=== PATIENT | female | born 1990 | race Caucasian/White ===

== ENCOUNTER → 2017-04-01 | Outpatient (REF) | payer BC | LOC: M SFHCWAGY 10:15 | PROVIDERS: ATTEND Nurse Practitioner Women's Health | DX: Z12.4 Encounter for screening for malignant neoplasm of cervix (principal) ==

== ENCOUNTER 2018-08-05 18:49 | Emergency (ER) | payer BC ==
[~2018-08-05] VITALS: Ht 167.6 cm; Wt 63.6 kg
[2018-08-05] MEDS ORDERED: IBUPROFEN 600 MG TAB PO ONE (20:00)
--- NOTE | 2018-08-05 20:38 | REP ---
Right knee five views : There is no fracture or dislocation. Mineralization and joint spaces are normal. There are no calcifications or foreign bodies. Impression: Negative right knee . Electronically Signed by Juan Carlos Haas MD 08/05/2018 08:28 P
[2018-08-05 20:49] VITALS: BP 119/72
[2018-08-05] MEDS ORDERED: IBUP-1022 PO (21:02)
== END 2018-08-05 21:10 | disposition home or self-care (01) ==
LOC: M ED 18:49
DX: S86.311A Strain of muscle(s) and tendon(s) of peroneal muscle group at lower leg level, right leg, initial encounter (principal); V00.321A Fall from snow-skis, initial encounter; Y92.838 Other recreation area as the place of occurrence of the external cause; T49.2X5A Adverse effect of local astringents and local detergents, initial encounter

== ENCOUNTER → 2019-04-13 | Outpatient (REF) | payer BC ==
[~2019-04-13] MED LIST: IBUP-1022 PO
[2019-04-13 17:11] LABS: HEMOGLOBIN 13.1 g/dl (12.0-15.5); MEAN CORPUSCULAR HEMOGLOBIN 31.6 pg (27.0-33.0); MEAN CORPUSCULAR HGB CONC 33.6 g/dl (32.0-36.5); MEAN CORPUSCULAR VOLUME 94.2 fl (80.0-96.0); PLATELET COUNT, AUTOMATED 308 10^3/uL (150-450); RED BLOOD COUNT 4.14 10^6/uL (4.00-5.40); WHITE BLOOD COUNT 6.1 10^3/uL (4.0-10.0)
[2019-04-13 17:31] LABS: HCG, SERUM QUANTITATIVE 940 MIU/ML
[2019-04-14 10:05] LABS: RUBELLA IgG QUALITATIVE IMMUNE (IMMUNE)
[2019-04-14 10:33] LABS: HEPATITIS C VIRUS ABY INDEX 0.1 INDEX (<0.8)
[2019-04-14 10:34] LABS: HIV 1&2 SCREEN CENTAUR NEGATIVE (NEGATIVE)
== END ==
LOC: M LAB REF 16:29
PROVIDERS: ATTEND Obstetrics & Gynecology
DX: O36.80X0 Pregnancy with inconclusive fetal viability, not applicable or unspecified (principal); Z3A.00 Weeks of gestation of pregnancy not specified

== ENCOUNTER → 2019-05-18 | Outpatient (REF) | payer BC, OTHER | LOC: M LAB REF 16:38 | PROVIDERS: ATTEND Obstetrics & Gynecology | DX: Z34.81 Encounter for supervision of other normal pregnancy, first trimester (principal) ==

== ENCOUNTER → 2019-09-08 | Outpatient (CLI) | payer BC, OTHER ==
[2019-09-08 08:29] LABS: MEAN CORPUSCULAR HEMOGLOBIN 33.2 pg (27.0-33.0); MEAN CORPUSCULAR HGB CONC 34.3 g/dl (32.0-36.5); PLATELET COUNT, AUTOMATED 263 10^3/uL (150-450); RED BLOOD COUNT 3.61 10^6/uL (4.00-5.40)
== END ==
LOC: M LAB 06:58
PROVIDERS: ATTEND Obstetrics & Gynecology
DX: Z34.82 Encounter for supervision of other normal pregnancy, second trimester (principal); Z3A.00 Weeks of gestation of pregnancy not specified

== ENCOUNTER → 2019-11-20 | Outpatient (REF) | payer OTHER | LOC: M LAB REF 11:49 | PROVIDERS: ATTEND Obstetrics & Gynecology | DX: Z34.83 Encounter for supervision of other normal pregnancy, third trimester (principal) ==

== ENCOUNTER 2019-12-03 19:43 | Outpatient (CLI) | payer BC, OTHER ==
[2019-12-03 20:08] VITALS: BP 125/68
[2019-12-03] MEDS ORDERED: PRENTAB9 PO (20:45)
--- NOTE | 2019-12-04 10:48 | IPN ---
DATE OF EVALUATION: 12/03/2019 HISTORY: 29-year-old, (G) 2, para (P) 1 female, at 37-5/7 weeks gestation presents with spontaneous loss of fluid per vagina at 4:30 p.m. on the day of evaluation. She then passed mucus. She initially passed the fluid when she was standing up from a seated position. She continued to leak over the next couple of hours, then the leaking seemed to stop. After waiting at home for about 4 hours she presented to the triage unit at [facility]. She is a patient of [facility]. OBJECTIVE: Blood pressure 125/68, pulse 90. Afebrile. She is in no apparent distress. HEAD/NECK EXAM: Normal. LUNGS: Clear. HEART: Regular rate and rhythm. ABDOMEN: Nontender, gravid. heart tones category 1. STERILE SPECULUM EXAM: Positive Nitrazine. Negative fern. Negative pool. Cervix 2 cm, 80% and -2, posterior vertex. ULTRASOUND: Amniotic fluid index (ANAYELI) equals 8.0. ASSESSMENT: 29-year-old, 2, para 1, at 37-5/7 weeks gestation with no definite evidence of ruptured membranes. She is having contractions but not in labor. PLAN: The patient's speculum exam done on two occasions during this visit in order to try to confirm rupture. Rupture of membranes could not be confirmed. The patient will be discharged home. She lives [place] the street from the hospital. If contractions increase or she feels like she is leaking fluid later in the evening, she will re-present to the labor floor. She plans to followup with Dr. Al on 12/05/2019.
== END 2019-12-03 22:25 | disposition home or self-care (01) ==
LOC: M LDO 19:43
PROVIDERS: ATTEND Specialist
DX: O60.03 Preterm labor without delivery, third trimester (principal); Z3A.37 37 weeks gestation of pregnancy
CPT/HCPCS: 59025; 76815; G0378; G0463

== ENCOUNTER 2019-12-04 01:18 | Inpatient (IN) | payer BC, OTHER ==
[~2019-12-04] VITALS: Ht 167.6 cm; Wt 76.5 kg
[2019-12-04] VITALS (9 sets, daily range): BP systolic 114–138; BP diastolic 62–87
[~2019-12-04 01:18] MED LIST changes: +PRENTAB9 PO
[2019-12-04] MEDS ORDERED: LACTATED RINGER'S 1000 ML IV STA (01:55)
[2019-12-04] MEDS ORDERED: LR 1,000 ML IV SCH (01:55)
[2019-12-04] MEDS ORDERED: FENTANYL 2MCG/ML ROPIVACAINE 0.2% IN 0.9% NACL 100ML IVBAG As Ordered ONE (02:19)
[2019-12-04 02:23] LABS: HEMATOCRIT 38.9 % (36.0-47.0); MEAN CORPUSCULAR VOLUME 94.4 fl (80.0-96.0); PLATELET COUNT, AUTOMATED 215 10^3/uL (150-450); RED BLOOD COUNT 4.12 10^6/uL (4.00-5.40); WHITE BLOOD COUNT 13.3 10^3/uL (4.0-10.0)
[2019-12-04] MEDS ORDERED: OXYTOCIN 30 UNITS IN 0.9% NaCl 500ML IV BAG (J2590) As Ordered ONE (02:23)
[2019-12-04] MEDS ORDERED: IBUPROFEN 600MG TAB PO PRN (03:30)
[2019-12-04] MEDS ORDERED: OXYTOCIN DRIP 30 UNITS in IV 1 EA IV ONE (03:30)
[2019-12-04] MEDS ORDERED: RHOGAM 300 MCG (1500 IU) INJ (J2790) IM SCH (03:30)
[2019-12-04] MEDS ORDERED: MEASLES,MUMPS,RUBELLA VACCINE INJ (MMR-II) (90707) SC SCH (03:30)
[2019-12-04] MEDS ORDERED: DIBUCAINE 1% OINTMENT 30GM TOP PRN (03:30)
[2019-12-04] MEDS ORDERED: LIDOCAINE 1% MDV 20ML VIAL INFIL ONE (03:30)
[2019-12-04] MEDS ORDERED: ONDANSETRON 4MG/2ML VIAL IV PRN (03:30)
[2019-12-04] MEDS ORDERED: ACETAMINOPHEN TAB 650MG DOSE (2X325MG) PO PRN (03:30)
[2019-12-04] MEDS ORDERED: METHYLERGONOVINE MALEATE 0.2 MG TAB PO PRN (03:30)
[2019-12-04] MEDS ORDERED: DOCUSATE SODIUM 100 MG CAP PO PRN (03:30)
[2019-12-04] MEDS: IBUPROFEN 800 MG TAB PO PRN ×3 (03:56→23:48)
[2019-12-04] MEDS: ACETAMINOPHEN 500 MG TAB PO PRN ×2 (03:57→20:07)
[2019-12-04] MEDS ORDERED: FENTANYL/ROPIVACAINE/NACL BAG 100 ML EPIDURAL SCH (07:00)
[2019-12-04] MEDS: PRENATAL VITAMINS CHEWABLE TABLET PO SCH (09:00)
--- NOTE | 2019-12-04 09:18 | HPE ---
DATE OF ADMISSION: 12/04/2019 HISTORY OF PRESENT ILLNESS (HPI): 29-year-old, (G) 2, para (P) 1 female, at 37-6/7 weeks gestation presents with regular contractions every 3-4 minutes for the last several hours with contractions increased intensity. She thought she broke her water at approximately 4:30 p.m. the day prior to admission. She was evaluated at the hospital. However, rupture of membranes could not be confirmed at that time and she was sent home. She denies vaginal bleeding. She denies any further leakage of fluid since she left the hospital. COURSE: The patient's care is done through Dr. Zachary Al, [facility]. She has had no complications. OBSTETRICAL HISTORY: 2009, spontaneous vaginal delivery, no complications, full term. MEDICAL HISTORY: Noncontributory. SURGICAL HISTORY: Colposcopy. ALLERGIES: NONE. SOCIAL HISTORY: The patient is . She lives in [place]. 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 She denies cigarettes, alcohol or drug. FAMILY HISTORY: Noncontributory. PHYSICAL EXAMINATION: Blood pressure 134/74, pulse 84. Afebrile. She appears uncomfortable. HEAD/NECK EXAM: Normal. LUNGS: Clear. HEART: Regular. ABDOMEN: Nontender, gravid. heart tones category 1. CONTRACTIONS: Every 3 minutes. STERILE VAGINAL EXAM: 6 cm, 100%, zero station. Head well applied to the cervix. Membranes palpable. EXTREMITIES: Nontender. LABS: She is GBS negative. Blood type AB positive. ASSESSMENT: 29-year-old, 2, para 1, at 37-6/7 weeks gestation who presents in early labor PLAN: The patient is admitted on 12/04/2019. Anticipate vaginal delivery. FADY
--- NOTE | 2019-12-04 11:00 | DN ---
DATE OF DELIVERY: 12/04/2019 PREDELIVERY DIAGNOSIS: 37-6/7 weeks gestation, labor. POSTDELIVERY DIAGNOSIS: Delivered. PROCEDURE: Spontaneous vaginal delivery. IT SECURITY ADMINISTRATOR: Adama Coello MD ANESTHESIA: None. ESTIMATED BLOOD LOSS: 300 mL. FINDINGS: 5 pound 14 ounce female , score 8 and 9. A velamentous cord insertion noted in the placenta. DELIVERY SUMMARY: The patient was admitted in active labor and 6 cm dilated. She quickly progressed to 10 cm. Membranes were artificially ruptured with clear fluid noted. After approximately 10 minutes second stage, the patient had spontaneously delivery a 5 pound 14 ounce female infant, score 8 and 9, with no delivery anesthesia. The shoulders delivered with ease. There was no nuchal cord. The was handed to the mother and cried immediately. The cord was doubly clamped and cut. The placenta delivered spontaneously and appeared to be intact. A velamentous insertion of the umbilical cord was noted. A first-degree perineal laceration was repaired with under local anesthesia with #2-0 chromic in the usual fashion. Sponge and needle counts were correct. MTDD
[2019-12-05 05:42] VITALS: BP 121/81
[2019-12-05 07:30] VITALS: BP 121/81
[2019-12-05] MEDS: PRENATAL VITAMINS CHEWABLE TABLET PO SCH (08:21)
== END 2019-12-05 13:25 | disposition home or self-care (01) | DRG 560 ==
LOC: M LDO 01:18 → M LDI 01:53 → M OBS 05:05
PROVIDERS: ADMIT Specialist; ATTEND Specialist
PROC: 10E0XZZ Delivery of Products of Conception, External Approach (ICD-10-PCS; principal; 2019-12-04)
PROC: 10907ZC Drainage of Amniotic Fluid, Therapeutic from Products of Conception, Via Natural or Artificial Opening (ICD-10-PCS; 2019-12-04)
PROC: 0HQ9XZZ Repair Perineum Skin, External Approach (ICD-10-PCS; 2019-12-04)
DX: O69.89X0 Labor and delivery complicated by other cord complications, not applicable or unspecified (principal); Z37.0 Single live birth; Z3A.37 37 weeks gestation of pregnancy

== ENCOUNTER → 2020-05-13 | Outpatient (CLI) | payer SELFPAY | LOC: M LABSMTC 11:37 | PROVIDERS: ATTEND Pediatrics | DX: Z20.828 Contact with and (suspected) exposure to other viral communicable diseases (principal) ==

== ENCOUNTER → 2021-12-22 | Outpatient (REF) | payer BC, OTHER ==
[2021-12-22 23:54] LABS: PERCENT SATURATION 35.1 % (13.2-45.0)
== END ==
LOC: M LAB REF 16:14
PROVIDERS: ATTEND Internal Medicine
DX: D64.9 Anemia, unspecified (principal)

== ENCOUNTER 2023-07-25 15:39 | Emergency (ER) | payer BC, OTHER ==
[~2023-07-25] VITALS: Ht 167.6 cm; Wt 73.0 kg
[2023-07-25 15:40] VITALS: BP 126/82; TEMP 98.1; O2SAT 97
[2023-07-25] MEDS ORDERED: ESTA0.25 (15:53)
[2023-07-25] MEDS: GOLYTELY SOLN 4000 ML BTL PO ONE (16:54)
== END 2023-07-25 16:55 | disposition home or self-care (01) ==
LOC: M ED 15:39
DX: K59.00 Constipation, unspecified (principal); Z91.048 Other nonmedicinal substance allergy status; Z79.899 Other long term (current) drug therapy

== ENCOUNTER → 2023-07-29 | Outpatient (REF) | payer BC, OTHER ==
[~2023-07-29] MED LIST changes: +ESTA0.25; +GOLYLQ PO
== END ==
LOC: M LAB REF 18:17
PROVIDERS: ATTEND Physician Assistant Medical
DX: R10.84 Generalized abdominal pain (principal)

== ENCOUNTER 2023-07-30 10:38 | Emergency (ER) | payer BC, OTHER ==
[~2023-07-30] VITALS: Ht 167.6 cm; Wt 71.8 kg
[~2023-07-30 10:38] MED LIST changes: -GOLYLQ PO
[2023-07-30 10:40] VITALS: BP 135/90; TEMP 98.1; O2SAT 100
[2023-07-30 13:09] LABS: BASO % 0.4 % (0.0-1.0); EOS % 0.4 % (0.0-3.0); HEMATOCRIT 40.8 % (36.0-47.0); HEMOGLOBIN 13.7 g/dl (12.0-15.5); LYMPH # 1.5 10^3/uL (1.5-5.0); LYMPH % 29.8 % (24.0-44.0); MEAN CORPUSCULAR HEMOGLOBIN 31.7 pg (27.0-33.0); MEAN CORPUSCULAR HGB CONC 33.6 g/dl (32.0-36.5); MEAN CORPUSCULAR VOLUME 94.4 fl (80.0-96.0); MONO # 0.3 10^3/uL (0.0-0.8); MONO % 5.1 % (2.0-8.0); NEUTROPHILS # 3.3 10^3/uL (1.5-8.5); NEUTROPHILS % 64.1 % (36.0-66.0); PLATELET COUNT, AUTOMATED 275 10^3/uL (150-450); RED BLOOD COUNT 4.32 10^6/uL (4.00-5.40); WHITE BLOOD COUNT 5.1 10^3/uL (4.0-10.0)
[2023-07-30 13:34] LABS: ALBUMIN 4.4 G/DL (3.2-5.2); BILIRUBIN,DIRECT 0.2 MG/DL (<0.4); BILIRUBIN,TOTAL 0.8 MG/DL (0.3-1.2); TOTAL PROTEIN 7.5 G/DL (5.7-8.2)
[2023-07-30] MEDS ORDERED: ISOVUE-370 76% 100ML VIAL As Ordered ONE (14:01)
[2023-07-30] MEDS: diphenhydrAMINE 50MG/ML VIAL IV STA (14:24)
[2023-07-30] MEDS: methylPREDNISolone 125MG 2ML VIAL IV ONE (14:24)
[2023-07-30] MEDS ORDERED: GOLYLQ PO (17:39)
== END 2023-07-30 17:49 | disposition home or self-care (01) ==
LOC: M ED 10:38
DX: K59.00 Constipation, unspecified (principal); F12.10 Cannabis abuse, uncomplicated; F10.10 Alcohol abuse, uncomplicated; Z91.041 Radiographic dye allergy status; Z91.048 Other nonmedicinal substance allergy status; Z79.899 Other long term (current) drug therapy
CPT/HCPCS: 74177; 80047; 80076; 81001; 83690; 84702; 85025; 96374; 99284; J1200; J2930; Q9967

== ENCOUNTER → 2023-08-10 | Outpatient (CLI) | payer BC, OTHER ==
[~2023-08-10] MED LIST changes: +GOLYLQ PO
== END ==
LOC: M RAD 10:40
PROVIDERS: ATTEND Physician Assistant Medical
DX: D41.01 Neoplasm of uncertain behavior of right kidney (principal)

== ENCOUNTER → 2023-09-03 | Outpatient (CLI) | payer BC | LOC: M PLARAD 09:18 | PROVIDERS: ATTEND Physician Assistant Medical | DX: D41.01 Neoplasm of uncertain behavior of right kidney (principal) ==

== ENCOUNTER → 2024-03-10 | Outpatient (REF) | payer BC | LOC: M LAB REF 11:14 | PROVIDERS: ATTEND Physician Assistant | DX: N30.01 Acute cystitis with hematuria (principal) ==

== ENCOUNTER → 2024-06-16 | Outpatient (CLI) | payer BC | LOC: M WUC 14:27 | PROVIDERS: ATTEND Physician Assistant | DX: S93.402A Sprain of unspecified ligament of left ankle, initial encounter (principal); S93.692A Other sprain of left foot, initial encounter; Y93.9 Activity, unspecified; Y92.9 Unspecified place or not applicable ==

== ENCOUNTER → 2024-07-25 | Outpatient (REF) | payer BC | LOC: M LAB REF 16:23 | PROVIDERS: ATTEND Physician Assistant Medical | DX: R05.9 Cough, unspecified (principal); R06.02 Shortness of breath ==

== ENCOUNTER → 2024-07-25 | Outpatient (CLI) | payer BC | LOC: M WUC 15:19 | PROVIDERS: ATTEND Physician Assistant Medical | DX: R05.9 Cough, unspecified (principal); R06.02 Shortness of breath ==

== ENCOUNTER → 2024-12-12 | Outpatient (REF) | payer BC, OTHER | LOC: M LAB REF 11:40 | PROVIDERS: ATTEND Physician Assistant | DX: R30.0 Dysuria (principal) ==

== ENCOUNTER → 2025-04-04 | Outpatient (REF) | payer BC, OTHER ==
[~2025-04-04] MED LIST changes: -IBUP-1022 PO; +IBUP600T42 PO
== END ==
LOC: M LAB REF 12:14
PROVIDERS: ATTEND Student in an Organized Health Care Education/Training Program
DX: R30.0 Dysuria (principal)

== ENCOUNTER → 2025-06-05 | Outpatient (REF) | payer BC, OTHER ==
[2025-06-05 12:22] LABS: IRON (FE) 76.0 UG/DL (50-170); PERCENT SATURATION 25.5 % (13.2-45.0)
== END ==
LOC: M LAB REF 11:59
PROVIDERS: ATTEND Physician Assistant Medical
DX: D64.9 Anemia, unspecified (principal)